=== PATIENT | female | born 1995 | race African-American/Black ===

== ENCOUNTER 2022-04-29 02:39 | Emergency (ER) | payer OTHER ==
[~2022-04-29] VITALS: Ht 167.6 cm; Wt 113.0 kg
[2022-04-29 05:48] LABS: CHLORIDE 105 mEq/L (98-107)
[2022-04-29 05:51] LABS: BASOPHILS % 1.8 % (0.0-2.0); HEMATOCRIT. 35.2 % (36.0-48.0); HEMOGLOBIN. 11.8 g/dL (12.0-16.0); LYMPHOCYTES % 14.4 % (20.0-50.0); MEAN CORPUSCULAR HEMOGLOBIN 26.5 pg (28.0-32.0); MEAN CORPUSCULAR VOLUME 78.9 fL (81.0-99.0); MEAN PLATELET VOLUME 9.3 fl (7.4-10.4); MONOCYTES % 8.5 % (2.0-8.0); NEUTROPHILS % 71.3 % (40.0-76.0); PLATELET 218 x1000/uL (130-400); RED BLOOD CELL COUNT 4.46 mill/uL (4.2-5.4); RED CELL DISTRIBUTION WIDTH 15.7 % (11.6-14.6)
[2022-04-29 06:37] VITALS: BP 122/80
== END 2022-04-29 07:22 | disposition home or self-care (01) ==
LOC: ER 02:45 → EDBD 02:45 → ER 07:22
DX: R55 Syncope and collapse (principal)
CPT/HCPCS: 36415; 71045; 80053; 82962; 83880; 84484; 85025; 93005; 99285

== ENCOUNTER 2023-02-12 21:04 | Emergency (ER) | payer OTHER ==
[2023-02-12 21:05] VITALS: PULSE 99
== END 2023-02-13 01:30 | disposition left against medical advice (07) ==
LOC: ER 21:04
DX: Z53.21 Procedure and treatment not carried out due to patient leaving prior to being seen by health care provider (principal)
CPT/HCPCS: 99281

== ENCOUNTER 2023-06-09 09:58 | Emergency (ER) | payer OTHER ==
[~2023-06-09] VITALS: Ht 172.7 cm; Wt 100.0 kg
[2023-06-09 10:11] VITALS: BP 106/55; PULSE 60; RESP 18; TEMP 97.4; O2SAT 97
[2023-06-09] MEDS ORDERED: IBUP-2029 MT (10:30)
[2023-06-09] MEDS ORDERED: SODI88SP18 BOTHNSTRLS (10:30)
== END 2023-06-09 10:50 | disposition home or self-care (01) ==
LOC: ER 10:13
DX: B34.9 Viral infection, unspecified (principal); J45.909 Unspecified asthma, uncomplicated
CPT/HCPCS: 99282; Z7610

== ENCOUNTER 2023-12-08 19:47 | Emergency (ER) | payer MEDICAID, OTHER ==
[~2023-12-08] VITALS: Ht 167.6 cm; Wt 109.0 kg
[~2023-12-08 19:47] MED LIST: IBUP-2029 MT; SODI88SP18 BOTHNSTRLS
[2023-12-08 19:55] VITALS: BP 111/65; PULSE 82; RESP 18; TEMP 98.6; O2SAT 99
[2023-12-08 21:39] LABS: CLARITY URINE CLEAR (CLEAR); COLOR URINE YELLOW (YELLOW); GLUCOSE URINE NEGATIVE (NEGATIVE); KETONES URINE TRACE (NEGATIVE); LEUKOCYTE ESTERASE URINE NEGATIVE (NEGATIVE); NITRITE URINE NEGATIVE (NEGATIVE); OCCULT BLOOD URINE NEGATIVE (NEGATIVE); PROTEIN URINE NEGATIVE (NEGATIVE); SPECIFIC GRAVITY URINE 1.028 (1.005-1.030)
[2023-12-08] MEDS ORDERED: FLUC150T46 MT (21:47)
== END 2023-12-08 22:20 | disposition home or self-care (01) ==
LOC: ER 19:47
DX: B37.31 Acute candidiasis of vulva and vagina (principal); N89.8 Other specified noninflammatory disorders of vagina; J45.909 Unspecified asthma, uncomplicated; F12.10 Cannabis abuse, uncomplicated
CPT/HCPCS: 81003; 81025; 87210; 99283

== ENCOUNTER 2023-12-15 11:51 | Emergency (ER) | payer MEDICAID ==
[~2023-12-15] VITALS: Ht 170.2 cm; Wt 121.0 kg
[~2023-12-15 11:51] MED LIST changes: +FLUC150T46 MT
[2023-12-15 12:04] VITALS: BP 134/77; PULSE 60; RESP 18; TEMP 97.8; O2SAT 96
[2023-12-15] MEDS: CEFTRIAXONE SODIUM 500MG VIAL IM ONE (12:59)
[2023-12-15] MEDS: DOXYCYCLINE HYCLATE 100MG CAPSULE PO ONE (12:59)
[2023-12-18 04:07] LABS: CHLAMYDIA TRACHOMATIS NAA Negative (Negative); NEISSERIA GONORRHOEAE NAA Negative (Negative)
== END 2023-12-15 16:05 | disposition left against medical advice (07) ==
LOC: ER 11:51
DX: A64 Unspecified sexually transmitted disease (principal); J45.909 Unspecified asthma, uncomplicated; F12.10 Cannabis abuse, uncomplicated
CPT/HCPCS: 99283; 87491; 87591; 81025; 96372; J0696